=== PATIENT | female | born 1960 | race Caucasian/White ===

== ENCOUNTER 2022-05-18 14:04 | Emergency (ER) | payer BC ==
[2022-05-18] MEDS ORDERED: Bacitracin Oint 1 GM U/D Packet TOP ONE (16:12)
[2022-05-18] MEDS ORDERED: Lidocaine 1% 5 ML VIAL INJECT ONE (16:12)
[2022-05-18] MEDS ORDERED: Diphtheria,Pertussis(Acell),Tetanus Vaccine 0.5 ML Syringe IM ONE (16:32)
== END 2022-05-18 17:00 | disposition home or self-care (01) ==
LOC: JP.ED 14:04
DX: S61.211A Laceration without foreign body of left index finger without damage to nail, initial encounter (principal); E78.00 Pure hypercholesterolemia, unspecified; Z86.73 Personal history of transient ischemic attack (TIA), and cerebral infarction without residual deficits; Z79.899 Other long term (current) drug therapy; Z88.2 Allergy status to sulfonamides; Z87.891 Personal history of nicotine dependence; Z23 Encounter for immunization; Z79.82 Long term (current) use of aspirin; W26.0XXA Contact with knife, initial encounter
CPT/HCPCS: 12002; 90471; 90715; 99281; 99282-25